=== PATIENT | female | born 1970 | race Caucasian/White ===

== ENCOUNTER 2017-04-24 09:30 | Day surgery (SDC) | payer MEDICAID ==
[~2017-04-24] VITALS: Ht 152.4 cm; Wt 83.0 kg
[2017-04-24] VITALS (10 sets, daily range): BP systolic 127–207; BP diastolic 63–107; PULSE 72–85; RESP 10–16; Ht 152.4 cm; Wt 83.0 kg
[~2017-04-24 09:30] MED LIST: CEFAZOLIN 1 GM/50 ML (PMX) 50 ML IVPB ONE; PROPOFOL 200 MG INJ ONE; SOD CHLORIDE 0.9% 1,000 ML IV SCH
[2017-04-24] MEDS ORDERED: BUPIVACAINE 0.5%/EPI (SDV) 10 ML INJ ONE (12:08)
[2017-04-24] MEDS ORDERED: FENTAnyl 50 MCG/ML VIAL ONE (12:22)
[2017-04-24] MEDS ORDERED: MIDAZOLAM 1 MG/ML 2 ML INJ ONE (12:23)
[2017-04-24] MEDS ORDERED: CEFAZOLIN 1 GM INJ ONE (12:25)
[2017-04-24] MEDS ORDERED: ACETAMINOPHEN 1000MG/100ML IV 100 ML ONE (12:25)
[2017-04-24] MEDS ORDERED: DEXAMETHASONE 4 MG/ML 1 ML INJ ONE (12:25)
[2017-04-24] MEDS ORDERED: ONDANSETRON 4 MG INJ ONE (12:25)
[2017-04-24] MEDS ORDERED: METOCLOPRAMIDE 10 MG INJ ONE (12:40)
[2017-04-24] MEDS ORDERED: morphine 10 MG INJ ONE (12:52)
[2017-04-24] MEDS ORDERED: MIDAZOLAM 1 MG/ML 2 ML INJ IV PRN (13:00)
[2017-04-24] MEDS ORDERED: hydrALAzine 20 MG INJ IV PRN (13:00)
[2017-04-24] MEDS ORDERED: ONDANSETRON 4 MG INJ IV PRN (13:00)
[2017-04-24] MEDS ORDERED: FENTAnyl 50 MCG/ML VIAL IV PRN ×2 (13:00)
[2017-04-24] MEDS ORDERED: LABETALOL HCL 20MG INJ IV PRN (13:00)
[2017-04-24] MEDS ORDERED: DIPHENHYDRAMINE 50 MG INJ IV PRN (13:00)
[2017-04-24] MEDS ORDERED: KETOROLAC 30 MG INJ ONE (13:02)
--- NOTE | 2017-04-24 13:48 | OPR ---
DATE OF OPERATION: 04/24/2017 PREOPERATIVE DIAGNOSIS: Lobular neoplasm, right breast. POSTOPERATIVE DIAGNOSIS: Lobular neoplasm, right breast. OPERATION PERFORMED: Right partial mastectomy. ANESTHESIA: General ANESTHESIOLOGIST: Herminia Riojas M.D. SURGEON: Dr. Lindsey INSTRUMENT DESIGNER: Dr. Jennifer Lazaro INDICATIONS FOR PROCEDURE: Patient presented with a palpable mass in her right breast. She was evaluated radiographically and subsequently underwent core biopsy that revealed a lobular neoplasm. She was counseled as to the need for resection. She consented and was scheduled for surgery. OPERATIVE PROCEDURE: Patient brought to the operating theater and placed under genera anesthesia. The right breast was prepped and draped in usual sterile fashion. The palpable mass was in the upper outer quadrant of the right breast. A curvilinear incision was made directly over it. Subcutaneous tissue was dissected with cautery. Deep within the breast parenchyma, the mass was identified. It was meticulously dissected from the surrounding tissue using cautery, elevated, transected and sent for permanent pathologic analysis. The wound was then irrigated. Minimal bleeding was controlled with cautery. The skin was reapproximated with 4-0 Vicryl suture in subcuticular fashion. Benzoin and Steri-Strips were then applied. The patient tolerated the procedure well. ESTIMATED BLOOD LOSS: 10 mL. COMPLICATIONS: There were no complications. The patient was transported in stable condition to the recovery room where a circumferential compression dressing was applied. Dictated By: Donaldo Lindsey MD /[email or web address] /Document#: [id number]
== END 2017-04-24 15:15 | disposition home or self-care (01) ==
LOC: SDS 09:30
PROVIDERS: ATTEND Surgery Surgical Oncology
DX: D24.1 Benign neoplasm of right breast (principal); F41.9 Anxiety disorder, unspecified
CPT/HCPCS: 19301; 84703; 88307; J0131; J0360; J0690; J1100; J1885; J2250; J2270; J2405; J2765; J3010; Z7512; Z7610